=== PATIENT | male | born 1985 | race African-American/Black ===

== ENCOUNTER 2017-12-11 16:53 | Emergency (ER) | payer OTHER ==
[2017-12-11] MEDS: IBUPROFEN 600 MG TAB PO (17:51)
[2017-12-11] MEDS: ACETAMINOPHEN 500 MG TAB PO (17:52)
[2017-12-11 17:57] LABS: URINE BLOOD (Dip) POC Negative (NEGATIVE); URINE GLUCOSE (Dip) POC Negative (NEGATIVE); URINE KETONES (Dip) POC Negative (NEGATIVE); URINE LEUKOCYTE EST (Dip) POC 3+ (NEGATIVE); URINE NITRITE (Dip) POC Negative (NEGATIVE); URINE TOTAL PROTEIN POC Trace (NEGATIVE)
[2017-12-11] MEDS: CEFTRIAXONE 1 GM INJ IM ×2 (18:41→18:55)
[2017-12-11] MEDS: LIDOCAINE 1% (MPF) 5 ML VIAL INJ (19:00)
[2017-12-11] MEDS: LIDOCAINE 1% (MDV) 10 ML INJ INJ (19:07)
== END 2017-12-11 19:10 | disposition home or self-care (01) ==
LOC: FTE 16:53
DX: N30.00 Acute cystitis without hematuria (principal)
CPT/HCPCS: 81003; 96372; 99284-25

== ENCOUNTER 2018-04-11 18:35 | Emergency (ER) | payer OTHER ==
[2018-04-11] MEDS: NICARDipine HCL 30 MG CAPSULE PO (20:06)
== END 2018-04-11 20:51 | disposition home or self-care (01) ==
LOC: E/R 18:35
DX: J40 Bronchitis, not specified as acute or chronic (principal); I10 Essential (primary) hypertension
CPT/HCPCS: 99283; Z7502